=== PATIENT | male | born 1995 | race Two or more races ===

== ENCOUNTER 2018-07-04 09:36 | Emergency (ER) | payer SELFPAY ==
[~2018-07-04] VITALS: Ht 180.3 cm; Wt 78.9 kg
[~2018-07-04 09:36] MED LIST: NO MEDICATIONS
[2018-07-04 09:37] VITALS: BP 142/77
== END 2018-07-04 11:03 | disposition home or self-care (01) ==
LOC: ED 10:55
DX: J02.9 Acute pharyngitis, unspecified (principal); H60.502 Unspecified acute noninfective otitis externa, left ear
CPT/HCPCS: 87081; 87880; 99283

== ENCOUNTER 2018-09-26 09:26 | Emergency (ER) | payer SELFPAY ==
[~2018-09-26] VITALS: Ht 180.3 cm; Wt 84.5 kg
[2018-09-26 10:18] VITALS: BP 143/84
== END 2018-09-26 12:34 | disposition home or self-care (01) ==
LOC: ED 12:28
DX: F41.1 Generalized anxiety disorder (principal); M54.2 Cervicalgia
CPT/HCPCS: 36415; 70360; 84439; 84443; 87081; 87880; 99284

== ENCOUNTER 2019-07-03 09:07 | Emergency (ER) | payer SELFPAY ==
[~2019-07-03] VITALS: Ht 180.3 cm; Wt 91.3 kg
--- NOTE | 2019-07-03 10:05 | NUR ---
PT IN HOPITAL GOWN, PLACED ON CARDIAC AND VITALS MONITORS. PT GOING TO CXR, GIVEN URINE CUP AND INSTRUCTION FOR URINE SPECIMEN COLLECTION .
--- NOTE | 2019-07-03 10:55 | NUR ---
REPORT GIVEN TO VIVIAN JAMES
[2019-07-03 11:01] LABS: AMPHETAMINE SCREEN, URINE Negative (Negative); BARBITURATE SCREEN, URINE Negative (Negative); BENZODIAZEPINE SCREEN, URINE Negative (Negative)
[2019-07-03 11:02] LABS: CANNABINOID SCREEN, URINE Positive (Negative); COCAINE SCREEN, URINE Negative (Negative); METHADONE SCREEN, URINE Negative (Negative); OPIATE SCREEN, URINE Negative (Negative)
[2019-07-03 11:07] LABS: BASOPHILS # (AUTO) 0.05 x10^3/uL (0-0.1); BASOPHILS % (AUTO) 1 % (0-1); EOSINOPHILS # (AUTO) 0.27 x10^3/uL (0-0.4); EOSINOPHILS % (AUTO) 3 % (1-7); LYMPHOCYTES # (AUTO) 1.75 x10^3/uL (1-3.4); LYMPHOCYTES % (AUTO) 21 % (22-44); MD NO; MEAN CORPUSCULAR HEMOGLOBIN 30.4 pg (27.5-34.5); MEAN CORPUSCULAR HGB CONC 33.7 g/dL (33.2-36.2); MEAN CORPUSCULAR VOLUME 90.3 fL (81-97); MEAN PLATELET VOLUME 8.9 fL (7.4-10.4); MONOCYTES # (AUTO) 0.64 x10^3/uL (0.2-0.8); MONOCYTES % (AUTO) 8 % (2-9); NEUTROPHILS # (AUTO) 5.85 x10^3/uL (1.8-6.8); NEUTROPHILS % (AUTO) 68 % (42-75); PLATELET COUNT 300 x10^3/uL (130-400); RED BLOOD COUNT 5.01 x10^6/uL (4.38-5.82); RED CELL DISTRIBUTION WIDTH 13.2 % (9.4-14.8)
[2019-07-03 11:08] LABS: ALBUMIN 4.1 g/dL (3.4-5.0); ANION GAP 3 mmol/L (5-15); CALCIUM 9.3 mg/dL (8.5-10.1); CHLORIDE 108 mmol/L (98-107); CREATININE 0.97 mg/dL (0.7-1.3)
[2019-07-03 11:12] LABS: TROPONIN I < 0.015 ng/mL (0.000-0.045)
--- NOTE | 2019-07-03 11:17 | NUR ---
Bedside report received from JACOB Kline. Patient resting in [facility] in no obvious distress at this time.
[2019-07-03 11:51] VITALS: BP 120/77
== END 2019-07-03 11:54 | disposition home or self-care (01) ==
LOC: ED 09:54
DX: R00.2 Palpitations (principal); R07.89 Other chest pain
CPT/HCPCS: 36415; 71046; 80048; 80307; 82040; 83735; 84443; 84484; 85025; 93005; 99285